=== PATIENT | female | born 1980 | race American Indian/Alaskan Native ===

== ENCOUNTER 2018-10-03 13:48 | Inpatient (IN) | payer MEDICAID ==
--- NOTE | 2018-10-03 15:42 | C.PDOC ---
History Of Present Illness 38 y/o female presents to ED sent from another ED for psych admission. Patient was medically cleared previously by staff and denies any physical complaints at this time. Time Seen by Provider: 10/03/18 14:04 Chief Complaint (Nursing): Medical Clearance History Per: Patient History/Exam Limitations: no limitations Onset/Duration Of Symptoms: Days Current Symptoms Are (Timing): Still Present Past Medical History Reviewed: Historical Data, Nursing Documentation, Vital Signs Vital Signs: Last Vital Signs Temp 98.4 F 10/03/18 13:57 Pulse 110 H 10/03/18 13:57 Resp 16 10/03/18 13:57 BP 120/88 10/03/18 13:57 Pulse Ox 97 10/03/18 13:57 - Medical History PMH: Asthma, Bipolar Disorder, Depression, HTN, Hypercholesterolemia, Schizophrenia Surgical History: No Surg Hx - [facility] Procedures MEDICATION MANAGEMENT (09/09/17) Family History: States: No Known Family Hx - Social History Hx Alcohol Use: No Hx Substance Use: No Review Of Systems Constitutional: Negative for: Fever, Chills Cardiovascular: Negative for: Chest Pain Respiratory: Negative for: Cough, Shortness of Breath Gastrointestinal: Negative for: Nausea, Vomiting Skin: Negative for: Rash Psych: Negative for: Withdrawal Physical Exam - Physical Exam Appears: Non-toxic, No Acute Distress Skin: Warm, Dry, No Rash Head: Atraumatic, Normacephalic Eye(s): bilateral: Normal Inspection Oral Mucosa: Moist Neck: Normal ROM, Supple Cardiovascular: Rhythm Regular Respiratory: Normal Breath Sounds, No Rales, No Rhonchi, No Wheezing Gastrointestinal/Abdominal: Soft, No Tenderness, No Guarding, No Rebound Extremity: Normal ROM, No Pedal Edema, Capillary Refill (<2 seconds) Neurological/Psych: Oriented x3, Normal Speech, Normal Cognition ED Course And Treatment O2 Sat by Pulse Oximetry: 97 (RA) Pulse Ox Interpretation: Normal Disposition - Disposition Disposition: HOSPITALIZED Disposition Time: 14:45 Condition: STABLE - Clinical Impression Clinical Impression: Schizoaffective disorder - Scribe Statement The provider has reviewed the documentation as recorded by the Alexis eLwis All medical record entries made by the Sheriibakhil were at my direction and personally dictated by me. I have reviewed the chart and agree that the record accurately reflects my personal performance of the history, physical exam, medical decision making, and the department course for this patient. I have also personally directed, reviewed, and agree with the discharge instructions and disposition.
--- NOTE | 2018-10-03 17:36 | PCM.BM ---
<Rocky Ventura - Last Filed: 10/03/18 17:33> Treatment Plan Problems - Problems identified on initial assessmt Schizoaffective Bipolar Date Initiated: 10/03/18 Time Initiated: 17:35 Assessment reference: NA Status: Active Suicidal Ideation Date Initiated: 10/03/18 Time Initiated: 17:37 Assessment reference: NA Status: Active Treatment assets and liabiliti Patient Assests: cooperative, self-reliant, ADL independent, physically healthy, negotiates basic needs, cognitively intact Patient Liabilities: live alone (assisted), dietary restrictions (Diabetic), medical problems (GERD, Asthma, Hypertension, Diabetes) - Milieu Protocol Maintain good personal hygiene: daily Encourage regular showers, daily Remind patient to perform daily oral care, every shift Assist patient to perform ADL's Conduct patient checks and document Observation sheet: Q15 minutes (For safety) Maintain personal safety: every shift Educate patient to report safety concerns to staff, every shift Monitor environment for contraband/sharps Medication safety: Monitor for expected outcome, potential side effects: every shift, Assess barriers to learning: every shift, Assess readiness for medication education: every shift <Olga Guevara - Last Filed: 10/04/18 11:13> - Diagnosis (1) Schizoaffective disorder Status: Chronic Interventions: 10/04/18 11:13 * Assess/adjust medications daily and /or as needed * See patient on an individual basis 7x/week to assess status of hallucinations * Discuss risks, benefits, side effects and alternatives of medications * <Sonia Foley - Last Filed: 10/04/18 12:39> Family Contact - Goals for Treatment Patient goals for treatment: "I need the right medication." Discharge/Continuing Care - Education Needs Education Needs: Patient Medication, Patient Coping Skills - Discharge Discharge Criteria: Tolerates medication w/o severe side effects, Reduction of target symptoms Discharge to:: Snf - Treatment Team Participation Discussed with Family/SO: No Was Patient/Family/SO present at Treatment Team Meeting: Yes
[2018-10-04] MEDS ORDERED: Albuterol HFA 90 mcg/actuation (8 g) INH PRN (01:48)
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
[2018-10-04] MEDS: Multiple Vitamins Tab PO SCH (10:29)
[2018-10-04] MEDS: (Novolog) Insulin Aspart, Recombinant 100 u/ml 10 ml vial SC SCH ×2 (16:52→21:39)
[2018-10-05] MEDS: (Novolog) Insulin Aspart, Recombinant 100 u/ml 10 ml vial SC SCH ×4 (08:29→21:03)
[2018-10-05] MEDS: Multiple Vitamins Tab PO SCH (11:05)
--- NOTE | 2018-10-05 11:16 | PCM.PYCHPN ---
Psychiatric Progress Note - Psychiatric Progress Note Patient seen today, length of contact: 15 min Patient Chief Complaint: I am still hearing voices.' Problems Identified/Issues Discussed: Patient was seen and evaluated, chart reviewed and discussed with the staff. Patient still reports of hearing voices and still appears paranoid and delusional. She remained disorganized and internally preoccupied. She remained isolative, depressed and withdrawn. She is taking medication denies any side effects. Supportive therapy was given Medication Change: Yes Medical Record Reviewed: Yes Mental Status Examination - Cognitive Function Orientation: Person, Place, Situation, Time Memory: Intact Attention: Poor Concentration: Poor Association: Loose Fund of Knowledge: Poor - Mood Mood: Depressed, Anxious - Affect Affect: Constricted, Depressed - Speech Speech: Soft - Formal Thought Process Formal Thought Process: Hallucinations, Delusions, Paranoia, Loosening of associations - Suicidal Ideation Suicidal Ideation: No - Homicidal Ideation Homicidal Ideation: No Goal/Treatment Plan - Goal/Treatment Plan Need for Continued Stay: Discharge may exacerbated symptoms, Severe functional impairment Progress Toward Problem(s) and Goals/Treatment Plan: Schizoaffective disorder depressed type CBT Psychoeducation Supportive therapy, group therapy and milieu therapy Haldol 5 mg p.o. twice daily Trazodone 50 mg p.o. nightly Sertraline 200 mg p.o. daily Hydroxyzine 25 mg p.o. every 6 hours as needed Continue medication for high blood pressure and diabetes Continue monitoring for diabetes and high blood pressure
[2018-10-06] MEDS: (Novolog) Insulin Aspart, Recombinant 100 u/ml 10 ml vial SC SCH ×4 (07:31→22:04)
--- NOTE | 2018-10-06 09:57 | PCM.PYCHPN ---
Psychiatric Progress Note - Psychiatric Progress Note Patient seen today, length of contact: 15 min Patient Chief Complaint: I am still hearing voices.' Problems Identified/Issues Discussed: Patient was seen and evaluated, chart reviewed and discussed with the staff. As per staff patient remained disorganized and tourniquet applied. Patient still reports of hearing voices and still appears paranoid and delusional. She remained isolative, depressed and withdrawn. She is taking medication denies any side effects. Symptoms are improving gradually but she needs to stay longer for further stabilization Supportive therapy was given Medication Change: Yes Medical Record Reviewed: Yes Mental Status Examination - Cognitive Function Orientation: Person, Place, Situation, Time Memory: Intact Attention: Poor Concentration: Poor Association: Loose Fund of Knowledge: Poor - Mood Mood: Depressed, Anxious - Affect Affect: Constricted, Depressed - Speech Speech: Soft - Formal Thought Process Formal Thought Process: Hallucinations, Delusions, Paranoia, Loosening of associ ations - Suicidal Ideation Suicidal Ideation: No - Homicidal Ideation Homicidal Ideation: No Goal/Treatment Plan - Goal/Treatment Plan Need for Continued Stay: Discharge may exacerbated symptoms, Severe functional impairment Progress Toward Problem(s) and Goals/Treatment Plan: Schizoaffective disorder depressed type CBT Psychoeducation Supportive therapy, group therapy and milieu therapy Haldol 5 mg p.o. daily Increase Haldol to 10 mg p.o. nightly Trazodone 50 mg p.o. nightly Sertraline 200 mg p.o. daily Hydroxyzine 25 mg p.o. every 6 hours as needed Continue medication for high blood pressure and diabetes Continue monitoring for diabetes and high blood pressure
[2018-10-06] MEDS ORDERED: Pneumococcal 23-Valent Vaccine IM ONE (10:00)
[2018-10-06] MEDS ORDERED: Influenza Vaccine 60 MCG/0.5 ML SYR (3 yr & up) IM ONE (10:00)
[2018-10-06] MEDS: Multiple Vitamins Tab PO SCH (10:31)
[2018-10-07 06:17] VITALS: O2SAT 95
[2018-10-07] MEDS: (Novolog) Insulin Aspart, Recombinant 100 u/ml 10 ml vial SC SCH ×4 (08:25→21:11)
[2018-10-07] MEDS: Multiple Vitamins Tab PO SCH (10:11)
[2018-10-08] MEDS: (Novolog) Insulin Aspart, Recombinant 100 u/ml 10 ml vial SC SCH ×4 (08:03→21:18)
[2018-10-08] MEDS: Multiple Vitamins Tab PO SCH (10:16)
[2018-10-09] MEDS: (Novolog) Insulin Aspart, Recombinant 100 u/ml 10 ml vial SC SCH ×4 (08:04→21:11)
[2018-10-09] MEDS: Multiple Vitamins Tab PO SCH (09:28)
[2018-10-09 09:47] LABS: SQUAMOUS EPITHIAL 15 /hpf (0-5); URINE BACTERIA RARE (<OCC); URINE BILIRUBIN NEGATIVE (NEGATIVE); URINE BLOOD NEGATIVE (NEGATIVE); URINE CLARITY Hazy (Clear); URINE COLOR Yellow (YELLOW); URINE GLUCOSE (UA) 3+ mg/dL (Normal); URINE LEUKOCYTE ESTERASE NEG Leu/uL (Negative); URINE PROTEIN NEGATIVE (NEGATIVE)
[2018-10-09] MEDS: buPROPion SR 150 MG TABLET PO SCH (17:56)
[2018-10-10] MEDS: (Novolog) Insulin Aspart, Recombinant 100 u/ml 10 ml vial SC SCH ×4 (08:30→21:10)
[2018-10-10] MEDS: buPROPion SR 150 MG TABLET PO SCH ×2 (09:41→17:57)
[2018-10-10] MEDS: Multiple Vitamins Tab PO SCH (09:42)
[2018-10-11 06:47] VITALS: RESP 18
[2018-10-11] MEDS: (Novolog) Insulin Aspart, Recombinant 100 u/ml 10 ml vial SC SCH ×4 (08:21→22:09)
[2018-10-11] MEDS: buPROPion SR 150 MG TABLET PO SCH ×2 (10:09→17:20)
[2018-10-11] MEDS: Multiple Vitamins Tab PO SCH (10:10)
--- NOTE | 2018-10-12 00:58 | PCM.PYCHPN ---
Psychiatric Progress Note - Psychiatric Progress Note Patient seen today, length of contact: 15 min Patient Chief Complaint: I am feeling better.' Problems Identified/Issues Discussed: Patient was seen and evaluated, chart reviewed and discussed with the staff. Patient reports some improvement in the voices, She appears more organized and less internally preoccupied than before. She remained isolative, and withdrawn. However she reports improvement in her mood. She is taking medication denies any side effects. Symptoms are improving gradually but she needs to stay longer for further stabilization Supportive therapy was given Medication Change: Yes Medical Record Reviewed: Yes Mental Status Examination - Cognitive Function Orientation: Person, Place, Situation, Time Memory: Intact Attention: Poor Concentration: WNL Association: Loose Fund of Knowledge: WNL - Mood Mood: Depressed, Anxious - Affect Affect: Constricted, Depressed - Speech Speech: Soft - Formal Thought Process Formal Thought Process: Paranoia - Suicidal Ideation Suicidal Ideation: No - Homicidal Ideation Homicidal Ideation: No Goal/Treatment Plan - Goal/Treatment Plan Need for Continued Stay: Discharge may exacerbated symptoms, Severe functional impairment Progress Toward Problem(s) and Goals/Treatment Plan: Schizoaffective disorder depressed type CBT Psychoeducation Supportive therapy, group therapy and milieu therapy Haldol 5 mg p.o. daily Increase Haldol to 10 mg p.o. nightly Trazodone 50 mg p.o. nightly Sertraline 200 mg p.o. daily Hydroxyzine 25 mg p.o. every 6 hours as needed Continue medication for high blood pressure and diabetes Continue monitoring for diabetes and high blood pressure - Smoking Cessation Smoking Cessation Initiated: No
[2018-10-12 06:31] VITALS: BP 106/69; PULSE 92; TEMP 98.4
[2018-10-12] MEDS: (Novolog) Insulin Aspart, Recombinant 100 u/ml 10 ml vial SC SCH (08:26)
[2018-10-12] MEDS: buPROPion SR 150 MG TABLET PO SCH (09:49)
[2018-10-12] MEDS: Multiple Vitamins Tab PO SCH (09:50)
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
[2018-10-12] MEDS ORDERED: Haloperidol Decanoate 100 mg/ml Inj IM ONE (11:30)
== END 2018-10-12 11:35 | disposition home or self-care (01) | DRG 430 ==
LOC: C.ER 13:48 → C.5E 14:05
PROVIDERS: ADMIT Psychiatry & Neurology Psychiatry; ATTEND Psychiatry & Neurology Psychiatry
PROC: GZ3ZZZZ Medication Management (ICD-10-PCS; principal; 2018-10-03)
PROC: GZHZZZZ Group Psychotherapy (ICD-10-PCS; 2018-10-03)
PROC: GZ56ZZZ Individual Psychotherapy, Supportive (ICD-10-PCS; 2018-10-03)
DX: F25.1 Schizoaffective disorder, depressive type (principal); R45.851 Suicidal ideations; F31.9 Bipolar disorder, unspecified; R44.0 Auditory hallucinations; I10 Essential (primary) hypertension; J45.909 Unspecified asthma, uncomplicated; E11.9 Type 2 diabetes mellitus without complications; E78.00 Pure hypercholesterolemia, unspecified; Z62.810 Personal history of physical and sexual abuse in childhood; Z91.5 Personal history of self-harm